=== PATIENT | male | born 1990 | race Caucasian/White ===

== ENCOUNTER 2016-12-19 05:16 | Emergency (ER) | payer OTHER ==
[~2016-12-19] VITALS: Ht 172.7 cm; Wt 113.4 kg
[~2016-12-19 05:16] MED LIST: CLINDAMYCIN HC300 M1 PO; CLONAZEPAM1 M2 PO; DAPSONE100 M1 PO; DIAZEPAM10 M1 PO; ESCITALOPRAM OX20 MG PO; HYDROQUINONE TOP; LYRICA75 M1 PO; MOBIC15 M1 PO; SULFACETAMIDE S15 ML OP; TRAMADOL HCL50 M1 PO; TRETINOIN20 G2 TOP; TRIUMEQ TABLET1 EACH PO
[2016-12-19 05:35] VITALS: BP 118/81
[2016-12-19] MEDS ORDERED: VALIUM5 M2 PO (05:55)
--- NOTE | 2016-12-19 05:57 | ED GENERAL ADULT ---
History of Present Illness General Chief Complaint: General Adult Stated Complaint: " MED REFILL" Source: patient, old records Exam Limitations: no limitations Vital Signs & Intake/Output Vital Signs & Intake/Output Vital Signs Date Time Temp Pulse Resp B/P B/P Pulse O2 O2 Flow FiO2 Mean Ox Delivery Rate 12/19 0535 98.8 83 16 118/81 98 Room Air Allergies Coded Allergies: acetaminophen (ELEVATED LFT 03/28/16) Reconcile Medications Abacavir/Dolutegravir/Lamivudi (Triumeq Tablet) 1 EACH TABLET 1 TAB PO DAILY ANTIVIRAL (Reported) Diazepam 10 MG TABLET 1 TAB PO TID ANXIETY (Reported) Diazepam (Valium) 5 MG TABLET 1 TAB PO TID anxiety Escitalopram Oxalate 20 MG TABLET 1 TAB PO DAILY MENTAL HEALTH (Reported) Hydroquinone 30 GM CREAM..G. 1 PARTH TOP BID HYPERPIGMENTATION (Reported) apply to affected area(s) Pregabalin (Lyrica) 75 MG CAPSULE 1 CAP PO BID PAIN (Reported) Tretinoin 20 GM CREAM..G. 1 PARTH TOP QPM WRINKLE (Reported) apply to affected area(s) Triage Note: 26yo MALE TO TRIAGE W/CO "JUST MOVING HERE FROM [place] AND HAS RUN OUT OF HIS DIAZEPAM 5MG" Triage Nurses Notes Reviewed? yes Onset: yesterday Duration: day(s):, constant Timing: recent history Injury Environment: home Severity: mild No Modifying Factors: none HPI: Patient returns from [place] for HIV treatment at [facility] running out of valium. He complains of chronic nausea vomiting currently retching. He denies fever chills diarrhea abdominal pain chest pain cough shortness of breath dysuria rash bleeding. Past History Travel History Traveled to [place] past 21 day No Medical History Any Pertinent Medical History? 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 No Review of Systems Review of Systems Constitutional: Reports: no symptoms. EENTM: Reports: no symptoms. Respiratory: Reports: no symptoms. Cardiovascular: Reports: no symptoms. GI: Reports: see HPI, nausea, vomiting. Genitourinary: Reports: no symptoms. Musculoskeletal: Reports: no symptoms. Skin: Reports: no symptoms. Neurological/Psychological: Reports: no symptoms. Hematologic/Endocrine: Reports: no symptoms. Immunologic/Allergic: Reports: no symptoms. All Other Systems: Reviewed and Negative Physical Exam Physical Exam General Appearance: well developed/nourished, alert, awake, anxious, mild distress, obese Head: atraumatic, normal appearance Eyes: Bilateral: normal appearance, PERRL, EOMI. Ears, Nose, Throat: normal pharynx, normal ENT inspection Neck: normal inspection, supple, full range of motion, no midline tenderness Respiratory: normal breath sounds, chest non-tender, no respiratory distress, quiet respiration, lungs clear Cardiovascular: regular rate/rhythm, normal peripheral pulses, norml femoral pulses equa Peripheral Pulses: 4+ carotid (R), 4+ carotid (L) Gastrointestinal: normal bowel sounds, soft, non-tender, no organomegaly Back: normal inspection, normal range of motion Extremities: normal inspection, normal capillary refill, normal range of motion, no edema Neurologic/Psych: no motor/sensory deficits, awake, alert, oriented x 3, normal gait, normal mood/affect Reflexes: 2+: bicep (R), bicep (L). Skin: intact, normal color, warm/dry Lymphatic: no anterior cervical sudhir Core Measures ACS in differential dx? No CVA/TIA Diagnosis: No Severe Sepsis Present: No Septic Shock Present: No Progress Differential Diagnoses I considered the following diagnoses in my evaluation of the patient: medication refill chronic n/v Plan of Care: Current Medications Sig/Emily Start time Last Medication Dose Stop Time Status Admin Metoclopramide HCl 10 MG ONCE ONE 12/19 06 UNVr (Reglan) 12/19 06 Initial ED EKG: none Departure Departure Time of Disposition: 0554 Disposition: HOME OR SELF CARE Condition: Stable Clinical Impression Primary Impression: Nausea and vomiting in adult Secondary Impressions: Encounter for medication refill Referrals: UNKNOWN (PCP/Family) Departure Forms: Customer Survey General Discharge Information Prescriptions: Current Visit Scripts Diazepam (Valium) 1 TAB PO TID #30 TAB Ref 1 Critical Care Note Critical Care Note Critical Care Time: non-applicable ED Attending Observation Initial Observation Note: I have seen and personally examined JOSE C HALL on 12/19/16 at 0633. I agree with the current emergency department documentation. The disposition (admission or discharge) is uncertain at this time, he needs a period of observation for the following reason(s): The ED Nurse caring for this patient has been personally informed as to what the patient is being observed for.
== END 2016-12-19 06:08 ==
LOC: ERH 05:16
DX: R11.2 Nausea with vomiting, unspecified (principal); Z76.0 Encounter for issue of repeat prescription

== ENCOUNTER 2016-12-27 17:51 | Emergency (ER) | payer OTHER ==
[~2016-12-27] VITALS: Ht 172.7 cm; Wt 111.1 kg
[~2016-12-27 17:51] MED LIST changes: +VALIUM5 M2 PO
[2016-12-27 17:56] VITALS: BP 114/78
--- NOTE | 2016-12-27 18:33 | ED SKIN/ALLERGY COMPLAINT ---
History of Present Illness General Chief Complaint: Skin Rash/ Abcess Stated Complaint: ABCESS Source: patient Exam Limitations: no limitations Vital Signs & Intake/Output Vital Signs & Intake/Output Vital Signs Date Time Temp Pulse Resp B/P B/P Pulse O2 O2 Flow FiO2 Mean Ox Delivery Rate 12/27 1756 98.9 103 15 114/78 95 Room Air Room Air ED Intake and Output 12/28 0000 12/27 1200 Intake Total 0 Output Total Balance 0 Intake, Oral 0 Patient 245 lb Weight Weight Reported by Patient Measurement Method Allergies Coded Allergies: sulfamethoxazole (From BACTRIM) (Mild, VOMITING 12/27/16) trimethoprim (From BACTRIM) (Mild, VOMITING 12/27/16) acetaminophen (ELEVATED LFT 12/27/16) Reconcile Medications Abacavir/Dolutegravir/Lamivudi (Triumeq Tablet) 1 EACH TABLET 1 TAB PO DAILY ANTIVIRAL (Reported) Cephalexin (Keflex) 500 MG CAPSULE 1 CAP PO BID ABSCESS/CELLULITIS Clindamycin HCl (Cleocin HCl) 300 MG CAPSULE 1 CAP PO TID CELLULITIS/ABSCESS Diazepam 10 MG TABLET 1 TAB PO TID ANXIETY (Reported) Diazepam (Valium) 5 MG TABLET 1 TAB PO TID anxiety Escitalopram Oxalate 20 MG TABLET 1 TAB PO DAILY MENTAL HEALTH (Reported) Hydroquinone 30 GM CREAM..G. 1 PARTH TOP BID HYPERPIGMENTATION (Reported) apply to affected area(s) Lidocaine (Anecream5) 5 % CREAM..G. 1 PARTH TOP TID PRN PAIN Pregabalin (Lyrica) 75 MG CAPSULE 1 CAP PO BID PAIN (Reported) Tretinoin 20 GM CREAM..G. 1 PARTH TOP QPM WRINKLE (Reported) apply to affected area(s) Triage Note: PT TO ED FOR C/C OF PERIRECTAL ABCESS. HISTORY OF SAME IN THE PAST. TRIED TO DRAIN WOUND TODAY BUT CAME TO ED FOR FURTHER EVAL, COMPLAINS OF +N/+V/+D, DIZZINESS. HISTORY OF SEPSIS FROM SAME IN THE PAST. PT AFEBRILE IN TRIAGE. Triage Nurses Notes Reviewed? yes Onset: Gradual Duration: constant Timing: recent history Severity: moderate Severity Numbers: 5 HPI: Patient is a 26-year-old male with a past medical history of HIV last CD4 count was 170 approximate 6 months ago and a history of rectal abscess and sepsis approximate one year ago who presents emergency room with a 5 day history of gradually worsening rectal pain and which patient has been squeezing the region noted to be purulent discharge earlier today. Patient also has had intermittent episodes of bright red blood after bowel movement. Last bowel movement however was normal in color. Patient denies any fevers chills abdominal pain nausea vomiting. Patient states that symptoms are not similar to previous episode of sepsis. Patient has been trying warm sitz baths with improvement of symptoms. Patient was requesting a surgeon for follow -up. (OLIVIA FONG) Past History Travel History Traveled to [place] past 21 day No Medical History Any Pertinent Medical History? 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 No (OLIVIA FONG) Review of Systems Review of Systems Constitutional: Reports: no symptoms. EENTM: Reports: no symptoms. Respiratory: Reports: no symptoms. Cardiovascular: Reports: no symptoms. GI: Reports: see HPI, changes in stool. Genitourinary: Reports: see HPI. Musculoskeletal: Reports: no symptoms. Skin: Reports: no symptoms. Neurological/Psychological: Reports: no symptoms. Hematologic/Endocrine: Reports: no symptoms. Immunologic/Allergic: Reports: no symptoms. All Other Systems: Reviewed and Negative (OLIVIA FONG) Physical Exam Physical Exam General Appearance: no apparent distress, alert, comfortable Comments: Well-developed well-nourished person in no acute distress HEENT: Normal EENT exam Neck: Supple, no lymphadenopathy, normal range of motion without pain or tenderness Back: Nontender, no CVA tenderness. Cardiovascular: Regular rate and rhythms no murmurs rubs or gallops, normal JVP Respiratory: Chest nontender. No respiratory distress.breath sounds clear to auscultation bilaterally Abdomen: Soft, nontender nondistended, no appreciable organomegaly. Normal bowel sounds. No ascites Extremity: No edema, no calf tenderness to palpation, normal and equal pulses. Neuro: Alert oriented x3, motor sensory normal Rectal inspection noted for mild surrounding erythema warmth with approximately at 9 o'clock position mild fluctuance noted with no active discharge- Skin: No appreciable rash on exposed skin, skin is warm and dry. Psych: Mood and affect is normal, memory and judgment is normal. (OLIVIA FONG) Progress Differential Diagnosis: abscess/cellulitis, allergic reaction, anaphylaxis, HERNIA, gi BLEED Plan of Care: Patient on initial examination was nontoxic appearing afebrile and denies any systemic symptoms of infection. On examination there was concern of rectal abscess however patient had requested for surgical referral for incision and drainage in which there is no concern of perirectal abscess. Patient was strongly advised to begin antibiotic regimen and to return to emergency room if symptoms of sepsis occur and he woke comply. He was strongly advised to follow- up with surgeon on Thursday. Discussed disposition plan with Dr. RAUSCH who agrees (OLIVIA FONG) Departure Departure Disposition: HOME OR SELF CARE Condition: Stable Clinical Impression Primary Impression: Rectal abscess Referrals: EUNICE OCHOA DO,RAPHAEL GANT MD,ODETTE PORRAS (PCP/Family) Additional Instructions: As discussed continue the warm sitz baths for improvement of her symptoms. Begin the prescription of Keflex and clindamycin as directed for the full course. On Thursday follow-up and establish colorectal surgeon Dr. Turner follow-up with surgeon Dr. Gant for further evaluation treatment. If symptoms worsen or he begin to develop a new concerning symptom return to emergency room immediately. Begin the prescription of viscous lidocaine Begin [id number] ibuprofen for pain and inflammation Departure Forms: Customer Survey General Discharge Information Prescriptions: Current Visit Scripts Cephalexin (Keflex) 1 CAP PO BID #20 CAP Clindamycin HCl (Cleocin HCl) 1 CAP PO TID #30 CAP Lidocaine (Anecream5) 1 PARTH TOP TID PRN PAIN #1 BOT (OLIVIA FONG) PA/FIELD AGENT Co-Sign Statement Statement: ED Attending supervision documentation- [] I saw and evaluated the patient. I have also reviewed all the pertinent lab results and diagnostic results. I agree with the findings and the plan of care as documented in the PA's/FIELD AGENT's documentation. [X] I have reviewed the ED Record and agree with the PA's/FIELD AGENT's documentation. [] Additions or exceptions (if any) to the PAs/FIELD AGENT's note and plan are summarized below: [] (MIRACLE KEATING,ALLYN)
[2016-12-27] MEDS ORDERED: KEFLEX500 M1 PO (19:14)
[2016-12-27] MEDS ORDERED: CLEOCIN HCL300 M1 PO (19:14)
[2016-12-27] MEDS ORDERED: ANECREAM515 GM TOP (19:16)
== END 2016-12-27 19:25 ==
LOC: ERH 17:51
DX: L02.91 Cutaneous abscess, unspecified (principal)